=== PATIENT | female | born 1995 | race Caucasian/White ===

== ENCOUNTER 2016-10-06 13:57 | Outpatient (CLI) | payer OTHER ==
--- NOTE | 2016-10-06 14:57 | DIAGNOSTIC IMAGING REPORT ---
PROCEDURE: CT SINUS/FACIAL BONES W/CONT CLINICAL INDICATION: PERIORBITAL CELLULITIS LEFT EYE TECHNIQUE: 100 ml of Isovue 300 injected intravenously and axial images were obtained through the face with coronal and sagittal reformations. COMPARISON: None. FINDINGS: There is an abscess in the left medial rectus muscle. This measures about a centimeter in length. There is just medial to the posterior aspect of the globe. Edema extends into the periorbital tissues. The entire medial rectus muscle is edematous. Normal frontal lobe and left cavernous sinus. There is mucoperiosteal thickening in the left ethmoid sinus. Right orbit is normal. IMPRESSION: 1. 1 cm abscess in the left medial rectus muscle. Slight mucoperiosteal thickening in the adjacent left ethmoid sinus. 2. Results were called to [facility] at 02:[address] scans at this facility use dose modulation, iterative reconstruction, and/or weight-based dosing when appropriate to reduce radiation dose to as low as reasonably achievable.
== END 2016-10-06 23:00 ==
LOC: CT SRH 13:57
DX: L03.213 Periorbital cellulitis (principal); J34.9 Unspecified disorder of nose and nasal sinuses